=== PATIENT | female | born 1955 | race Caucasian/White ===

== ENCOUNTER 2023-02-28 23:09 | Inpatient (IN) | payer MEDICARE, SELFPAY ==
--- NOTE | ~2023-02-28 | CT_ITS ---
Clinical Indication: Dyspnea CT Scan of the Chest with Contrast: Technique: Contiguous sections were acquired throughout the chest after intravenous administration of 100 cc of Omnipaque 350. Dose reduction technique was used on this scan by utilizing automated expos ure control and iterative reconstruction technique. The dose-length product (DLP) was 870.53 mGy-cm. Findings: There is no evidence of any significant mediastinal, hilar or axillary lymphadenopathy. There is no f illing defect in the pulmonary arterial tree to suggest pulmonary embolus. There is an aortic dissect ion, originating at the aortic arch of probably just distal to the right brachiocephalic artery origi n, extending distally throughout the descending thoracic aorta and the visualized abdominal aorta. Ce liac axis, SMA, and right renal artery arise from the true lumen. Origin of the left renal artery is not included in the [id number] of this exam. Coronary artery calcifications are present. There are postsurgical changes in the right breast. Small hiatal hernia noted. There is no evidence of pleural or pericardial effusion. Mild emphysema present. There is bibasilar interstitial thickening. There is probable chronic scarrin g or atelectasis in the right middle lobe. Images through the upper abdomen reveal no abnormalities. There are scattered sclerotic and mixed lytic sclerotic osseous lesions in the visualized skeleton, c onsistent with osseous metastatic disease. Impression: Aortic dissection, originating at the aortic arch, and extending through the descending thoracic aort a and visualized abdominal aorta, as detailed above. No pulmonary embolus. Probable mild bibasilar interstitial pulmonary edema versus mild chronic interstitial disease. Chronic scarring or atelectasis right middle lobe. Osseous metastatic disease, as noted above. Correlate with history of malignancy. Mild emphysema. Reviewed, dictated and finalized at [facility]. Impression: Aortic dissection, originating at the aortic arch, and extending through the de scending thoracic aorta and visualized abdominal aorta, as detailed above. No pulmonary embolus. Probable mild bibasilar interstitial pulmonary edema versus mild chronic inters titial disease. Chronic scarring or atelectasis right middle lobe. Osseous metastatic disease, as noted above. Correlate with history of malignanc y. Mild emphysema.
--- NOTE | ~2023-02-28 | XR_ITS ---
EXAMINATION: XR chest 1V portable DATE: 03/03/2023 23:07 INDICATION: Shortness of breath. TECHNIQUE: A single frontal view of the chest was obtained. COMPARISON: Chest single view 03/02/2023, chest CT 03/01/2023 FINDINGS: There is a diffuse interstitial pattern in the lungs. There are airspace opacities in the l ower lung zones. There is a small right pleural effusion. No pneumothorax. The heart size is normal. Median sternotomy wires are noted. There are surgical clips in right breast in right axilla. A right internal jugular central venous catheter is seen with tip in the proximal right atrium. There is a ly tic lesion in right fifth rib with old pathologic fracture. There is an old healed left rib fracture. IMPRESSION: 1. Mildly worsened diffuse lung disease, consistent with pulmonary edema versus pneumonia. 2. Worsened small right pleural effusion. 3. Lytic rib lesion, consistent with metastatic disease. Reviewed, dictated and finalized at location A.
--- NOTE | ~2023-02-28 | XR_ITS ---
Portable chest x-ray Comparison: 02/28/2023 Clinical History: Line placement Findings: Right-sided central venous line is in place, tip probably just in the right atrium. There is probable mild bibasilar haziness. No pleural effusion or pneumothorax. Cardiomediastinal silhouet te is stable. Bones and soft tissues are unremarkable. Impression: Support line in place, as above. Probable minimal bibasilar pulmonary edema. Reviewed, dictated and finalized at location . Impression: Support line in place, as above. Probable minimal bibasilar pulmonary edema.
--- NOTE | ~2023-02-28 | XR_ITS ---
Portable chest x-ray Comparison: 09/07/2007 Clinical History: Dyspnea Findings: There is bibasilar pulmonary edema. No definite pleural effusion. Cardiomediastinal silho uette is stable. Bones and soft tissues are unremarkable. Impression: Mild bibasilar pulmonary edema. Correlate clinically for infection. Reviewed, dictated and finalized at [facility]. Impression: Mild bibasilar pulmonary edema. Correlate clinically for infection.
--- NOTE | ~2023-02-28 | XR_ITS ---
EXAMINATION: XR chest 1V portable DATE: 03/02/2023 08:03 INDICATION: Shortness of breath. TECHNIQUE: A single frontal view of the chest was obtained. COMPARISON: Chest single view 03/01/2023, chest CT 03/01/2023 FINDINGS: There are airspace opacities in the lower lung zones. There is an interstitial pattern in t he lungs with a perihilar predominance. No pleural effusion or pneumothorax. The heart size is normal . Median sternotomy wires are noted. A right internal jugular central venous catheter is seen with ti p in the proximal right atrium. There are surgical clips in right axilla. IMPRESSION: 1. Diffuse lung disease with a perihilar and lower lung predominance, likely mild pulmonary edema. Reviewed, dictated and finalized at location A. IMPRESSION: 1. Diffuse lung disease with a perihilar and lower lung predominance, likely mi ld pulmonary edema.
[2023-02-28 23:09] VITALS: BP 176/90; PULSE 120; RESP 26; TEMP 37.7; O2SAT 88
[2023-02-28 23:15] VITALS: O2SAT 98
--- NOTE | 2023-02-28 23:27 | ECG_ITS ---
Measurements Intervals [place] Rate: 124 P: 48 ID: [id number] QRS: -29 QRSD: 102 T: 12 QT: 331 QTc: 476 Interpretive Statements SINUS TACHYCARDIA LEFT VENTRICULAR HYPERTROPHY AND ST-T CHANGE POOR R WAVE PROGRESSION, ANTERIOR LEADS BASELINE ARTIFACT- I, II, III ABNORMAL ECG NO PREVIOUS ECG AVAILABLE FOR COMPARISON Electronically Signed On 03-01-2023 6:25:21 CDT by Dung Roblero D.O.
[2023-02-28 23:58] LABS: Fractional Inspired Oxygen 36 %; HCO3 ABG 22.7 mEq/l (22.0-26.0); Oxygen Content ABG 14.2 %vol (16.0-22.0); Oxygen Saturation ABG 96.3 % (95.0-100.0); PCO2 ABG 30.6 mmHg (35.0-45.0); PO2 ABG 76.2 mmHg (80.0-100.0); PO2 FiO2 Ratio Arterial Blood 2.12 %; Total Hemoglobin 10.8 g/dL (12.0-18.0); pH ABG 7.489 (7.350-7.450)
[2023-02-28 23:59] LABS: Device NASAL CANNULA; Site Drawn LEFT BRACHIAL
[2023-03-01] VITALS (72 sets, daily range): BP systolic 83–169; BP diastolic 45–90; PULSE 90–131; RESP 14–43; TEMP 37.2; O2SAT 85–100; BMI 37.8
[2023-03-01] LABS: Glucose Point of Care 136 mg/dl (65-105)
[2023-03-01 00:03] LABS: Hematocrit 31.2 % (37.0-47.0); Hemoglobin 10.5 g/dL (12.0-15.0); Mean Corpuscular HGB Conc 33.7 g/dl (32-36); Mean Corpuscular Hemoglobin 31.1 pg (26-34); Mean Corpuscular Volume 92.3 fl (80-100); Mean Platelet Volume 9.1 fl (7.4-10.4); Platelet Count Result 190 k/mm3 (150-375); Red Blood Count 3.38 M/mm3 (4.2-5.4); Red Cell Distribution Width 22.5 % (11.5-14.5)
--- NOTE | 2023-03-01 00:13 | ED.GENADULT ---
HPI - General Adult General Chief complaint: Shortness of Breath/Dyspnea Stated complaint: sob History of Present Illness HPI narrative: This 59-year-old female presenting ED with a chief complaint of shortness of breath, cough, nausea,vomiting,weakness. Patient has been getting chemotherapy for her stage IV breast cancer. She has been feeling unwell for the last several weeks. However today she get acutely worse. After she had dinner she started coughing and became short of breath. Her son was with her called EMS and she was found to be hypoxic on room air. She was placed on 4 L nasal cannula which improved her oxygen saturation. She is then brought to the hospital. Patient receives her oncology care at [facility] Related Data Allergies Allergy/AdvReac Type Severity Reaction Status Date / Time vancomycin Allergy Hives Verified 03/01/23 00:19 warfarin Allergy Hives Verified 03/01/23 00:19 [facility] Family History Family History Mother Acute arthritis Diabetes mellitus Heart disease Hypertension Father Hypertension Cerebrovascular accident Sibling Hypertension Social History Social History Smoking status: Unknown if ever smoked Exam Narrative: APPEARANCE: patient appears chronically unwell, she is breathing heavily Head: atraumatic. EYES: EOMI, NOSE: Atraumatic NECK: Trachea midline RESPIRATORY: increased rate of breathing, scattered crackles CARDIOVASCULAR: RRR, no peripheral edema ABDOMINAL: Non-distended, soft nontender no guarding or rebound MUSCULOSKELETAl: No obvious deformities NEURO: Alert. Moving 4/4 extremities SKIN:: Warm, dry. Normal color PSYCHIATRIC: Normal affect Course Vital Signs Vital signs: Vital Signs Temperature 100 F H 02/28/23 23:09 Pulse Rate 120 H 02/28/23 23:09 Respiratory Rate 26 H 02/28/23 23:09 Blood Pressure 176/90 H 02/28/23 23:09 Pulse Oximetry 88 L 02/28/23 23:09 Oxygen Delivery Room Air 02/28/23 23:09 Temperature 100 F H 02/28/23 23:09 Pulse Rate 110 H 03/01/23 04:31 Respiratory Rate 19 03/01/23 04:31 Blood Pressure 99/51 L 03/01/23 04:31 Pulse Oximetry 93 03/01/23 04:31 Oxygen Delivery BiPAP 03/01/23 02:30 Oxygen Flow Rate 4 02/28/23 23:15 Procedures Central Line Placement Right IJ: Central Line Date: 03/01/23 Discussed w/ the patient/family/POA,the placement of a central venous catheter, including its clinical necessity/indication & associated potential risks, benifits and alternatives.: Yes The patient/family/POA understand(s) and acknowledge(s) the need to proceed with central venous catheter insertion as an important element of the patient's clinical management.: Yes Time Out Performed: Yes Patient Placed on Monitor/Pulse Ox: Yes Max. Sterile Barrier Technique: Caps, large sterile sheet and hand hygiene Central Line Prep: 2% chlorhexidine scrub Technique: US-Guided Local Anesthetic: lidocaine 1% Amount of anesthesia used (mL): 3 Ultrasound Used for Placement: Yes Central Line Lumen Inserted: triple Post Procedure: sutured in place, good blood return, all ports aspirated, flushed, capped and sterile dressing applied Post Procedure X-Ray: tip of catheter in good position Patient Tolerated Procedure: well Complications: none EJ/Peripheral Line Arm L: EJ/Peripheral Line Date: 03/01/23 Time Out Performed: No Skin Cleansed in Sterile Fashion: Yes Ultrasound Guided: No Size (gauge): 18 IV Secured and Dressing Applied: Yes Patient Tolerated Procedure: well Additional Comments: IV placed by MD under emergent conditions. Medical Decision Making MDM Narrative Medical decision making narrative: -Presentation: is a 67-year-old female with history of stag
[2023-03-01 00:15] LABS: White Blood Count 1.9 K/mm3 (4.5-10.0)
[2023-03-01] MEDS: CEFEPIME 2 GM/NS 50 ML 2 GM/50 ML BAG IVPB (00:21)
[2023-03-01 00:23] LABS: Prothrombin Time 13.3 Seconds (11.1-14.7)
[2023-03-01 00:24] LABS: Partial Thromboplastin Time 27.5 SECONDS (22.3-36.8)
[2023-03-01 00:25] LABS: Alanine Aminotransferase 17 U/L (6-35); Albumin Level 4.3 g/dL (3.5-5.1); Alkaline Phosphatase 65 U/L (38-126); Anion Gap 7 mmol/L (8-16); Aspartate Amino Transferase 21 U/L (14-36); Bilirubin,Total 1.1 mg/dL (0.2-1.3); Blood Urea Nitrogen 20 mg/dL (7-17); Calcium 9.3 mg/dL (8.4-10.2); Carbon Dioxide 30 mmol/L (22-30); Chloride 97 mmol/L (98-107); Estimated CRCL calculation 42 ml/min; Estimated Glomerular Filt Rate 41; Glucose 129 mg/dL (65-110); Lactic Acid Reflex 1.5 mmol/L (0.7-2.0); Lipase 74 U/L (23-300); Magnesium 1.2 mg/dL (1.6-2.3); Potassium 3.3 mmol/L (3.4-5.0); Sodium 134 mmol/L (137-145)
[2023-03-01 00:28] LABS: Appearance Urine Clear (Clear); Bacteria Urine 2+ /hpf; Bilirubin Urine Negative (Negative); Color Urine Dark Yellow (Yellow); Glucose Urine UA Trace mg/dL (Negative); Ketones Urine Negative (Negative); Leukocyte Esterase Ur 2+ LEU/UL (Negative); Nitrate Urine Positive (Negative); Non Pathogenic Casts 0-2; Protein Urine 2+ mg/dL (Negative); RBC Urine 0-2 /hpf (0-2); Specific Grav Ur 1.012 (1.001-1.035); Squamous Epithelial Cell Urine Moderate /hpf (Few); WBC Urine 51-100 /hpf
[2023-03-01 00:34] LABS: NT Pro B Type Natriuretic Pept 2530 pg/mL (19.9-100)
[2023-03-01 00:36] LABS: Troponin I 0.012 ng/mL (0.000-0.034)
[2023-03-01 00:38] LABS: Influenza A QL RT-PCR Negative (Negative); Influenza B QL RT-PCR Negative (Negative); RSV RNA, RT-PCR Negative (Negative); SARS-CoV-2 RNA PCR Negative (Negative)
[2023-03-01 00:40] LABS: Add Urine Microscopic? YES
[2023-03-01 00:53] LABS: Anisocytosis 2+ (NORMAL); Band Neutrophils Percent 38 % (0-6); Eosinophils Absolute Manual 0.03 K/mm3 (0.02-0.5); Eosinophils Percent Manual 2 % (0-4); Lymphocytes Absolute Manual 0.19 K/mm3 (1.1-4.5); Metamyelocytes Percent 1 %; Microcytosis 2+ (NORMAL); Monocytes Absolute Manual 0.07 K/mm3 (0.1-0.90); Monocytes Percent Manual 4 % (3-9); Neutrophils Absolute Manual 1.53 K/mm3 (1.7-7.2); Neutrophils Percent Manual 43 % (46-73); Platelet Estimate Adequate (Adequate); Promyelocytes Percent 2 %; Total Cells Counted 100
[2023-03-01 00:55] LABS: Ovalocytes 1+ (NORMAL); Poikilocytosis 2+ (NORMAL); Schistocytes None Seen (NORMAL)
[2023-03-01 00:56] LABS: Burr Cells 1+ (NORMAL)
--- NOTE | 2023-03-01 01:12 | PC.NURSE ---
per EDP-Zych normal saline administration stopped
[2023-03-01] MEDS: LINEZOLID 600 MG/300 ML 600 MG/300 ML SOLN 300 MG IVPB ×3 (01:50→20:31)
[2023-03-01] MEDS: HYDROmorphone HCL INJ (*CRX) 1 MG/ML SYR 0.5 MG IV PUSH (02:14)
[2023-03-01] MEDS: POTASSIUM CHLORIDE 20 MEQ TABLET 40 MEQ PO (02:18)
[2023-03-01] MEDS: MAGNESIUM SULF 2 GM/WATER 50ML 2 GM/50 ML BAG IVPB (02:25)
[2023-03-01] MEDS: IPRATROPIUM BR 0.02% INH SOLN 0.5 MG/2.5 ML VIAL 1 MG INHALATION (02:37)
[2023-03-01] MEDS: ALBUTEROL SULFATE NEB 2.5 MG/3 ML INH 10 MG INHALATION (02:37)
[2023-03-01] MEDS: ONDANSETRON INJ 4 MG/2 ML VIAL IV PUSH (02:46)
--- NOTE | 2023-03-01 02:56 | PC.NURSE ---
patient placed on bipap by respiratory. Patient vomits in mask. Mask removed quickly and patient continues to vomit. EDP notified.
[2023-03-01] MEDS: SODIUM CHLORIDE 0.9% IV 1,000 ML 999 ML IV CONT (03:53)
[2023-03-01] MEDS: SODIUM CHLORIDE 0.9% IV 1,000 ML 100 ML IV CONT ×2 (04:37→16:13)
[2023-03-01] MEDS: NOREPINEPHRINE 8 MG/D5W 250 ML 8 MG/250 ML BAG 9.38 MG IV CONT (05:09)
--- NOTE | 2023-03-01 06:40 | PC.NURSE ---
Patient's son calls for an update and requests to be informed of mothers admission room when that occurs. Call back-[phone] Lincoln Ochoa.
--- NOTE | 2023-03-01 07:45 | PC.NURSE ---
called dietary and ordered breakfast tray for pt at this time
--- NOTE | 2023-03-01 08:05 | PM.IMHP ---
H&P: HPI History of Present Illness Date/Time: 03/01/23 08:05 Chief Complaint: 59-year-old female with history of recent aortic dissection status post repair, diabetes, breast cancer, heart disease, ischemic cardiomyopathy is presenting to the ER with shortness of breath, cough, nausea, vomiting and weakness. She had aortic dissection and aortic valve repair in October 2022 and is currently receiving chemotherapy for stage IV breast cancer at [facility]. In the ER, she was found to be hypoxic and placed on 4 L nasal cannula. Labs showed hypokalemia and suspected dehydration. She was started on IV fluids. CTA was negative for PE. EKG was benign for sinus tach. There was concern for pneumonia, UTI and possible sepsis and so she was started on broad-spectrum antibiotics. She had a central line placed due to severe hypotension and was also put on BiPAP due to worsening respiratory failure. She eventually required pressors and was admitted to the ICU. The ED physician discussed with [facility] cardiothoracic surgery regarding the aortic dissection, Dr Montalvo stated that the aortic dissection is stable and noncontributory to the admitting symptoms.? The ER physician also called [facility] transfer service and patient is on a waiting list. Review of Systems Review of Systems: 12 point review of systems was assessed and was negative except as noted in the HPI PMFSH Past Medical History Medical History (Updated 03/01/23 @ 13:20 by Toño Ortega MD) Aortic valve defect Diabetes mellitus with hyperglycemia HTN (hypertension), benign Hyperlipidemia Stage IV breast cancer in female Surgical History Surgical History (Updated 03/01/23 @ 08:12 by Nia Barnett DO) S/P aortic dissection repair Family History Family History Mother Acute arthritis Diabetes mellitus Heart disease Hypertension Father Hypertension Cerebrovascular accident Sibling Hypertension Social History Social History Smoking packs per day: 1 Smoking cigarettes per day: 20.0 Years smoked: 30 Smoking pack-years: 30.00 Smoking status: Former smoker Alcohol intake: never Substance use: never Lack of Transportation: No Lack of Food: Never True Current Housing: I Have Housing Concerned About Future Housing: No Difficulty Paying Gas/Electric Bills: No Difficulty Paying for Meds: No Currently Unemployed: No Education: Associate Degree Difficulty w/ Childcare or Family Care: No Spiritual care concerns: No Meds Home Medications and Allergies Home Medications Medication Instructions Recorded Confirmed Type Oxygen #1 ea 11/03/22 03/01/23 Rx Palbociclib(Ibrance) 125 mg PO DAILY ##0 11/03/22 03/01/23 Rx Zoledronic Acid 4 mg IV [id number] ##0 11/03/22 03/01/23 Rx acetaminophen 325 mg tablet (Mapap 650 mg PO Q6H PRN Pain #14 tabs 11/03/22 03/01/23 Rx (acetaminophen)) ascorbic acid (vitamin C) 500 mg 250 mg PO DAILY #14 tabs 11/03/22 03/01/23 Rx tablet (Vitamin C) aspirin 81 mg chewable tablet 81 mg PO DAILY@0800 #30 tabs 11/03/22 03/01/23 Rx (Children's Aspirin) atorvastatin 40 mg tablet 40 mg PO DAILY #30 tabs 11/03/22 03/01/23 Rx calcium carbonate 500 mg calcium 500 mg PO BIDWM #30 tabs 11/03/22 03/01/23 Rx (1,250 mg) tablet (Oyster Shell Calcium 500) carvedilol 12.5 mg tablet (Coreg) 12.5 mg PO Q12HR #60 tabs 11/03/22 03/01/23 Rx cholecalciferol (vitamin D3) 25 2,000 units PO DAILY #30 tabs 11/03/22 03/01/23 Rx mcg (1,000 unit) tablet (Vitamin D3) escitalopram oxalate 10 mg tablet 20 mg PO DAILY #0 tabs 11/03/22 03/01/23 Rx furosemide 20 mg tablet 20 mg PO DAILY #14 tabs 11/03/22 03/01/23 Rx metformin 500 mg tablet 500 mg PO BIDWMEAL #30 tabs 11/03/22 03/01/23 Rx potassium chloride 10 mEq 10 meq PO DAILY #12 caps 11/03/22 03/01/23 Rx capsule,extende
[2023-03-01 08:57] LABS: Troponin I 0.035 ng/mL (0.000-0.034)
[2023-03-01] MEDS: HEPARIN SODIUM 5,000 UNITS/ML VIAL 5000 UNITS SUB-Q ×2 (09:09→20:32)
[2023-03-01] MEDS: CEFEPIME 1 GM in DEXTROSE 5% IN WATER 50 ML IVPB (10:08)
--- NOTE | 2023-03-01 10:45 | ADMGEN ---
This patient, Ana Ochoa, was admitted to Intensive Care Unit-12. Patient/family oriented to hospital policies and general routines including ID bracelet, bed and alarms, visiting hours, pain management, procedures, bathroom and other care routines, personal items, smoking policy, room service/diet, and visiting hours. Information on how to activate the Rapid Response Team has been discussed. Patient/Family are encouraged to report perceived risks to care and to ask questions if they do not understand what they are told or what they should do.
[2023-03-01 12:29] LABS: Troponin I 0.019 ng/mL (0.000-0.034)
--- NOTE | 2023-03-01 12:55 | WPDCNINT ---
Assessment and Plan Assessment and plan (1) Septic shock: Code(s): A41.9 - Sepsis, unspecified organism; R65.21 - Severe sepsis with septic shock Status: Acute Assessment and Plan: Patient presented with nausea, vomiting, shortness of breath with nonproductive cough. Hypotension despite receiving 4 L of IV fluid bolus in the ER, right IJ was inserted in the ER and patient was started on Levophed -likely source urine and or pneumonia -received chemotherapy recently on 02/20/2023 -patient has been started on cefepime, azithromycin and linezolid (patient allergic to vancomycin) on 03/01 -03/01/blood and urine cultures have been obtained and pending -lactic acid was normal -will wean Levophed to maintain MAP > 65 mmHg for adequate end organ perfusion (2) Acute UTI: Code(s): N39.0 - Urinary tract infection, site not specified Status: Acute Assessment and Plan: UA was reflective for UTI, urine cultures have been obtained, continue antibiotics as above (3) Diabetes mellitus with hyperglycemia: Qualifiers: Diabetes mellitus type: type 2 Code(s): E11.65 - Type 2 diabetes mellitus with hyperglycemia Status: Acute Assessment and Plan: Continue Accu-Cheks and sliding scale (4) CKD (chronic kidney disease): Qualifiers: Chronic kidney disease stage: unspecified stage Qualified Code(s): N18.9 - Chronic kidney disease, unspecified Code(s): N18.9 - Chronic kidney disease, unspecified Status: Acute Assessment and Plan: Patient history of chronic kidney disease -acute renal failure with creatinine of 1.3 on admission (creatinine on 10/28/2022 was 0.9) -related to hypotension, hypovolemia, urosepsis -continue maintenance IV fluids -good urine output, renal function and electrolyte (5) Respiratory failure: Qualifiers: Chronicity: acute Respiratory failure complication: hypoxia Qualified Code(s): J96.01 - Acute respiratory failure with hypoxia Code(s): J96.90 - Respiratory failure, unspecified, unspecified whether with hypoxia or hypercapnia Status: Acute Assessment and Plan: Patient complained of worsening shortness of breath with cough, related to pneumonia versus pulmonary edema -much improved when she arrived in the ICU as compared to when she presented to the ER -continue supplemental oxygen - (6) Aortic dissection: Qualifiers: Thoracic aorta location: descending thoracic aorta Aortic location: thoracic aorta Qualified Code(s): I71.012 - Dissection of descending thoracic aorta Code(s): I71.00 - Dissection of unspecified site of aorta Status: Acute Assessment and Plan: 03/01/2023 CTA showed : Aortic dissection, originating at the aortic arch, and extending through the descending thoracic aorta and visualized abdominal aorta, as detailed above. No pulmonary embolus. Probable mild bibasilar interstitial pulmonary edema versus mild chronic interstitial disease. Chronic scarring or atelectasis right middle lobe. Osseous metastatic disease, as noted above. Correlate with history of malignancy. Mild emphysema. The ER doctor discussed with CT surgery at [facility], Dr. Montalvo stated that the aortic dissection is stable and noncontributory to the admitting symptoms. No need to transfer the patient to [facility] (7) Stage IV breast cancer in female: Code(s): C50.919 - Malignant neoplasm of unspecified site of unspecified female breast Status: Acute Assessment and Plan: Stage IV breast cancer, patient received the chemotherapy at [facility] - The ER physician also called [facility] transfer service and patient is on a waiting list. -last chemotherapy on 02/20/2023 Plan DVT prophylaxis: Lovenox Stress ulcer prophylaxis: Not indicated Nutrition: Heart healthy diet Code Status: Do not resuscitate Critical Care Time Spent: 49 m
[2023-03-01] MEDS: LEVALBUTEROL NEB 1.25 MG/3 ML INHALATION ×2 (15:40→20:12)
[2023-03-01] MEDS: IPRATROPIUM BR 0.02% INH SOLN 0.5 MG/2.5 ML VIAL INHALATION ×2 (15:40→20:12)
[2023-03-01] MEDS: CENTRAL LINE FLUSH 10 ML IV PUSH ×2 (15:59→21:37)
[2023-03-01 16:38] LABS: Glucose Point of Care 113 mg/dl (65-105)
[2023-03-01] MEDS: CEFEPIME 2 GM in DEXTROSE 5% IN WATER 50 ML IVPB (20:42)
[2023-03-01 20:48] LABS: Glucose Point of Care 210 mg/dl (65-105)
[2023-03-01] MEDS: traMADol HCL (*CRX) 50 MG TABLET PO (21:36)
[2023-03-02] VITALS (20 sets, daily range): BP systolic 85–142; BP diastolic 55–97; PULSE 92–99; RESP 12–23; TEMP 36.7–37.2; O2SAT 93–100
[2023-03-02] MEDS: LEVALBUTEROL NEB 1.25 MG/3 ML INHALATION ×4 (01:55→20:48)
[2023-03-02] MEDS: IPRATROPIUM BR 0.02% INH SOLN 0.5 MG/2.5 ML VIAL INHALATION ×4 (01:55→20:48)
[2023-03-02] MEDS: SODIUM CHLORIDE 0.9% IV 1,000 ML 100 ML IV CONT (03:25)
[2023-03-02 05:45] LABS: Basophils Percent Auto 0.5 % (0.2-1.2); Eosinophils Absolute Auto 0.1 K/mm3 (0-0.3); Eosinophils Percent Auto 1.6 % (0-4.4); Hematocrit 24.4 % (37.0-47.0); Hemoglobin 7.9 g/dL (12.0-15.0); Immature Granulocyte Percent A 4.7 % (0-0.5); Lymphocytes Absolute Auto 0.69 K/mm3 (0.9-3.2); Lymphocytes Percent Auto 16.1 % (18.3-44.2); Mean Corpuscular HGB Conc 32.4 g/dl (32-36); Mean Corpuscular Hemoglobin 31.1 pg (26-34); Mean Corpuscular Volume 96.1 fl (80-100); Mean Platelet Volume 9.3 fl (7.4-10.4); Monocytes Absolute Auto 0.4 K/mm3 (0.1-0.6); Monocytes Percent Auto 9.8 % (2.6-8.5); Neutrophils Absolute Auto 2.9 K/mm3 (1.3-6.7); Neutrophils Percent Auto 67.3 % (45.5-73.1); Platelet Count Result 128 k/mm3 (150-375); Red Blood Count 2.54 M/mm3 (4.2-5.4); Red Cell Distribution Width 22.9 % (11.5-14.5); White Blood Count 4.3 K/mm3 (4.5-10.0)
[2023-03-02 05:55] LABS: Alanine Aminotransferase 13 U/L (6-35); Alkaline Phosphatase 46 U/L (38-126); Anion Gap 3 mmol/L (8-16); Aspartate Amino Transferase 14 U/L (14-36); Bilirubin,Total 0.6 mg/dL (0.2-1.3); Blood Urea Nitrogen 18 mg/dL (7-17); Calcium 7.4 mg/dL (8.4-10.2); Carbon Dioxide 28 mmol/L (22-30); Chloride 104 mmol/L (98-107); Estimated CRCL calculation 46 ml/min; Estimated Glomerular Filt Rate 45; Glucose 87 mg/dL (65-110); Magnesium 1.7 mg/dL (1.6-2.3); Potassium 3.4 mmol/L (3.4-5.0); Sodium 135 mmol/L (137-145)
[2023-03-02 05:57] LABS: Lactic Acid Reflex 0.6 mmol/L (0.7-2.0)
[2023-03-02 06:24] LABS: Anisocytosis 3+ (NORMAL); Burr Cells 2+ (NORMAL); Ovalocytes 1+ (NORMAL); Schistocytes None Seen (NORMAL)
[2023-03-02] MEDS: CENTRAL LINE FLUSH 10 ML IV PUSH ×3 (06:30→20:31)
[2023-03-02] MEDS: FUROSEMIDE INJ 40 MG/4 ML VIAL 20 MG IV PUSH (07:33)
[2023-03-02 07:40] LABS: Glucose Point of Care 88 mg/dl (65-105)
[2023-03-02] MEDS: traMADol HCL (*CRX) 50 MG TABLET PO ×2 (07:41→18:04)
[2023-03-02] MEDS: POTASSIUM CHLORIDE 20 MEQ TABLET 40 MEQ PO (08:16)
[2023-03-02] MEDS: LINEZOLID 600 MG/300 ML 600 MG/300 ML SOLN 300 MG IVPB (08:18)
[2023-03-02] MEDS: MAGNESIUM SULF 2 GM/WATER 50ML 2 GM/50 ML BAG IVPB (08:18)
[2023-03-02] MEDS: CEFEPIME 2 GM in DEXTROSE 5% IN WATER 50 ML IVPB (08:25)
[2023-03-02] MEDS: ENOXAPARIN 30 MG/0.3 ML SYRINGE SUB-Q (08:35)
[2023-03-02 11:32] LABS: Glucose Point of Care 141 mg/dl (65-105)
--- NOTE | 2023-03-02 12:08 | WPDINTPN ---
Progress Note: A&P Assessment and Plan (1) Septic shock: Code(s): A41.9 - Sepsis, unspecified organism; R65.21 - Severe sepsis with septic shock Status: Acute Assessment and Plan: Patient presented with nausea, vomiting, shortness of breath with nonproductive cough. Hypotension despite receiving 4 L of IV fluid bolus in the ER, right IJ was inserted in the ER and patient was started on Levophed -likely source urine and or pneumonia -received chemotherapy recently on 02/20/2023 -patient has been started on cefepime, azithromycin (03/01), -linezolid discontinued 03/02/2023 -03/01 blood cultures growing Gram-negative bacilli -03/01: Urine cultures pending -lactic acid was normal -currently off Levophed (2) Acute UTI: Code(s): N39.0 - Urinary tract infection, site not specified Status: Acute Assessment and Plan: UA was reflective for UTI, urine cultures have been obtained, continue antibiotics as above (3) Diabetes mellitus with hyperglycemia: Qualifiers: Diabetes mellitus type: type 2 Code(s): E11.65 - Type 2 diabetes mellitus with hyperglycemia Status: Acute Assessment and Plan: Continue Accu-Cheks and sliding scale (4) CKD (chronic kidney disease): Qualifiers: Chronic kidney disease stage: unspecified stage Qualified Code(s): N18.9 - Chronic kidney disease, unspecified Code(s): N18.9 - Chronic kidney disease, unspecified Status: Acute Assessment and Plan: Patient history of chronic kidney disease -acute renal failure with creatinine of 1.3 on admission (creatinine on 10/28/2022 was 0.9) -related to hypotension, hypovolemia, urosepsis -continue maintenance IV fluids -good urine output, renal function and electrolyte -creatinine improving (5) Respiratory failure: Qualifiers: Chronicity: acute Respiratory failure complication: hypoxia Qualified Code(s): J96.01 - Acute respiratory failure with hypoxia Code(s): J96.90 - Respiratory failure, unspecified, unspecified whether with hypoxia or hypercapnia Status: Acute Assessment and Plan: Patient complained of worsening shortness of breath with cough, related to pneumonia versus pulmonary edema -much improved when she arrived in the ICU as compared to when she presented to the ER -continue supplemental oxygen -patient given low-dose Lasix this morning as she was congested, chest x-ray also showed pulmonary edema (6) Aortic dissection: Qualifiers: Aortic location: thoracic aorta Thoracic aorta location: descending thoracic aorta Qualified Code(s): I71.012 - Dissection of descending thoracic aorta Code(s): I71.00 - Dissection of unspecified site of aorta Status: Acute Assessment and Plan: 03/01/2023 CTA showed : Aortic dissection, originating at the aortic arch, and extending through the descending thoracic aorta and visualized abdominal aorta, as detailed above. No pulmonary embolus. Probable mild bibasilar interstitial pulmonary edema versus mild chronic interstitial disease. Chronic scarring or atelectasis right middle lobe. Osseous metastatic disease, as noted above. Correlate with history of malignancy. Mild emphysema. The ER doctor discussed with CT surgery at [facility], Dr. Montalvo stated that the aortic dissection is stable and noncontributory to the admitting symptoms. No need to transfer the patient to [facility] (7) Stage IV breast cancer in female: Code(s): C50.919 - Malignant neoplasm of unspecified site of unspecified female breast Status: Acute Assessment and Plan: Stage IV breast cancer, patient received the chemotherapy at [facility] - The ER physician also called [facility] transfer service and patient is on a waiting list. -last chemotherapy on 02/20/2023 Plan DVT prophylaxis: Lovenox Stress ulcer prophylaxis: Not indicated Nutrition: Hear
--- NOTE | 2023-03-02 13:05 | PM.IMPN ---
Progress Note: A&P Assessment and Plan (1) Septic shock: Code(s): A41.9 - Sepsis, unspecified organism; R65.21 - Severe sepsis with septic shock Status: Acute Assessment and Plan: Management per staple fiber washer, continue Levophed and normal saline infusions Weaned off pressors and continue antibiotics, started on linezolid, cefepime, azithromycin 03/01 Both blood and urine cultures all positive for E coli, sensitivities pending Will repeat blood cultures 03/03 03/02: deescalate antibiotics, MRSA swab pending, discontinue azithromycin, deescalate cefepime to Rocephin and continue linezolid for now (2) Stage IV breast cancer in female: Code(s): C50.919 - Malignant neoplasm of unspecified site of unspecified female breast Status: Acute Assessment and Plan: Hold chemotherapy for now, last dose 02/20/23 (3) Diabetes mellitus with hyperglycemia: Qualifiers: Diabetes mellitus type: type 2 Code(s): E11.65 - Type 2 diabetes mellitus with hyperglycemia Status: Acute Assessment and Plan: Check A1c, Accu-Cheks, sliding scale insulin Hold metformin (4) Hyperlipidemia: Code(s): E78.5 - Hyperlipidemia, unspecified Status: Acute Assessment and Plan: Hold statin (5) HTN (hypertension), benign: Code(s): I10 - Essential (primary) hypertension Status: Acute Assessment and Plan: Hold antihypertensives Pressors per staple fiber washer (6) Aortic valve defect: Code(s): I35.9 - Nonrheumatic aortic valve disorder, unspecified Status: Acute Assessment and Plan: Stable status post repair October 2022 (7) S/P aortic dissection repair: Code(s): Z98.890 - Other specified postprocedural states Status: Acute Assessment and Plan: Stable status post repair October 2022 Plan DVT prophylaxis with SCDs GI prophylaxis not indicated Code status DNR/DNI Subjective Date/time seen: 03/02/23 13:05 Interval history: 67-year-old female history of breast cancer, diabetes, aortic dissection repair presenting with shortness of breath, cough, nausea, vomiting and generalized weakness presented with hypoxia and sepsis from a UTI. No overnight events noted. No chest pain or shortness of breath. No nausea, vomiting or diarrhea. No fevers or chills. Review of Systems Review of Systems: 12 point review of systems was assessed and was negative except as noted in the HPI Exam Narrative: General: No acute distress, alert and oriented per baseline, still requiring supplemental oxygen at times HEENT: Atraumatic, normocephalic, mucous membranes moist CV: Regular rate and rhythm, S1, S2 Lungs: Coarse BS throughout, diminished air entry, no wheeze Abdomen: Soft, nontender, nondistended Extremities: Normal to inspection, nonpitting edema bilaterally Skin: No rashes noted, no lesions or wounds seen Psych: Euthymic, normal affect Objective Data Vital Signs Vital Signs: Vital Signs - 24 hr 03/01/23 13:17 03/01/23 14:00 03/01/23 14:00 Temperature Pulse Rate 93 90 90 Respiratory Rate 16 Blood Pressure 115/77 109/67 Pulse Oximetry 95 Oxygen Delivery Oxygen Flow Rate 03/01/23 14:00 03/01/23 14:00 03/01/23 15:41 Temperature Pulse Rate 90 Respiratory Rate 14 Blood Pressure 109/57 L Pulse Oximetry 97 96 Oxygen Delivery Nasal Cannula Nasal Cannula Oxygen Flow Rate 2 1 03/01/23 15:41 03/01/23 16:00 03/01/23 16:00 Temperature Pulse Rate 90 101 H Respiratory Rate 16 Blood Pressure Pulse Oximetry 94 Oxygen Delivery Room Air Oxygen Flow Rate 03/01/23 16:00 03/01/23 18:00 03/01/23 18:00 Temperature 99.0 F Pulse Rate 96 93 93 Respiratory Rate 18 18 Blood Pressure 113/67 109/79 Pulse Oximetry 95 85 L Oxygen Delivery Oxygen Flow Rate 03/01/23 18:00 03/01/23 18:19 03/01/23 20:14 Temperatu
[2023-03-02] MEDS: ALBUMIN HUMAN 25% 25 GM/100 ML 100 ML IVPB (18:05)
[2023-03-02] MEDS: cefTRIAXone 2 GM/NS 100 ML 2 GM/100 ML BAG IVPB (20:29)
[2023-03-02 20:57] LABS: Glucose Point of Care 119 mg/dl (65-105)
[2023-03-03] VITALS (28 sets, daily range): BP systolic 112–160; BP diastolic 62–90; PULSE 95–113; RESP 16–22; TEMP 36.5–37.3; O2SAT 86–97
[2023-03-03] MEDS: ALBUMIN HUMAN 25% 25 GM/100 ML 100 ML IVPB ×3 (00:36→11:41)
[2023-03-03] MEDS: IPRATROPIUM BR 0.02% INH SOLN 0.5 MG/2.5 ML VIAL INHALATION ×5 (02:12→23:01)
[2023-03-03] MEDS: LEVALBUTEROL NEB 1.25 MG/3 ML INHALATION ×5 (02:12→23:01)
[2023-03-03 05:40] LABS: Basophils Percent Auto 0.7 % (0.2-1.2); Eosinophils Absolute Auto 0.1 K/mm3 (0-0.3); Eosinophils Percent Auto 2.8 % (0-4.4); Hematocrit 22.5 % (37.0-47.0); Hemoglobin 7.2 g/dL (12.0-15.0); Immature Granulocyte Absolute 0.04 K/mm3 (0.00-0.031); Immature Granulocyte Percent A 1.4 % (0-0.5); Lymphocytes Absolute Auto 0.41 K/mm3 (0.9-3.2); Lymphocytes Percent Auto 14.4 % (18.3-44.2); Mean Corpuscular Hemoglobin 30.8 pg (26-34); Mean Corpuscular Volume 96.2 fl (80-100); Mean Platelet Volume 8.8 fl (7.4-10.4); Monocytes Absolute Auto 0.3 K/mm3 (0.1-0.6); Monocytes Percent Auto 10.6 % (2.6-8.5); Neutrophils Percent Auto 70.1 % (45.5-73.1); Platelet Count Result 112 k/mm3 (150-375); Red Blood Count 2.34 M/mm3 (4.2-5.4); Red Cell Distribution Width 23.1 % (11.5-14.5); White Blood Count 2.8 K/mm3 (4.5-10.0)
[2023-03-03] MEDS: CENTRAL LINE FLUSH 10 ML IV PUSH ×4 (05:40→21:09)
[2023-03-03 06:10] LABS: Alanine Aminotransferase 12 U/L (6-35); Albumin Level 3.6 g/dL (3.5-5.1); Alkaline Phosphatase 46 U/L (38-126); Anion Gap 6 mmol/L (8-16); Aspartate Amino Transferase 13 U/L (14-36); Bilirubin,Total 0.5 mg/dL (0.2-1.3); Blood Urea Nitrogen 15 mg/dL (7-17); Calcium 7.5 mg/dL (8.4-10.2); Carbon Dioxide 27 mmol/L (22-30); Chloride 103 mmol/L (98-107); Estimated CRCL calculation 51 ml/min; Estimated Glomerular Filt Rate 49; Glucose 102 mg/dL (65-110); Magnesium 2.1 mg/dL (1.6-2.3); Phosphorus 2.4 mg/dL (2.5-4.5); Potassium 3.9 mmol/L (3.4-5.0); Sodium 136 mmol/L (137-145)
[2023-03-03 06:20] LABS: Anisocytosis 3+ (NORMAL); Burr Cells 2+ (NORMAL); Hypochromasia 1+ (NORMAL); Ovalocytes 1+ (NORMAL)
[2023-03-03 06:21] LABS: Schistocytes None Seen (NORMAL)
[2023-03-03 08:20] LABS: Glucose Point of Care 94 mg/dl (65-105)
--- NOTE | 2023-03-03 11:39 | PM.IMPN ---
Progress Note: A&P Assessment and Plan (1) Septic shock: Code(s): A41.9 - Sepsis, unspecified organism; R65.21 - Severe sepsis with septic shock Status: Acute Assessment and Plan: Management per associate director data & analytics, continue Levophed and normal saline infusions Weaned off pressors and continue antibiotics, started on linezolid, cefepime, azithromycin 03/01 Both blood and urine cultures all positive for E coli, sensitivities pending Will repeat blood cultures 03/03 03/02: deescalate antibiotics, MRSA swab pending, discontinue azithromycin, deescalate cefepime to Rocephin and continue linezolid for now 03/03: MRSA culture still pending, follow-up repeat blood cultures, continue Rocephin, d/c linezolid, E coli is sensitive to Rocephin, deescalate to Augmentin when blood cultures are negative, home O2 eval prior to discharge (2) Stage IV breast cancer in female: Code(s): C50.919 - Malignant neoplasm of unspecified site of unspecified female breast Status: Acute Assessment and Plan: Hold chemotherapy for now, last dose 02/20/23 Hypocalcemia, replete and recheck (3) Diabetes mellitus with hyperglycemia: Qualifiers: Diabetes mellitus type: type 2 Code(s): E11.65 - Type 2 diabetes mellitus with hyperglycemia Status: Acute Assessment and Plan: Check A1c, Accu-Cheks, sliding scale insulin Hold metformin Blood glucose reviewed 03/03 (4) Hyperlipidemia: Code(s): E78.5 - Hyperlipidemia, unspecified Status: Acute Assessment and Plan: Hold statin (5) HTN (hypertension), benign: Code(s): I10 - Essential (primary) hypertension Status: Acute Assessment and Plan: Restart antihypertensives as able Previously on Coreg 12.5 mg q.12, furosemide 20 mg daily, held on admission Restarted Lasix 03/03 (6) Aortic valve defect: Code(s): I35.9 - Nonrheumatic aortic valve disorder, unspecified Status: Acute Assessment and Plan: Stable status post repair October 2022 (7) S/P aortic dissection repair: Code(s): Z98.890 - Other specified postprocedural states Status: Acute Assessment and Plan: Stable status post repair October 2022 Plan DVT prophylaxis with SCDs GI prophylaxis not indicated Code status DNR/DNI Subjective Date/time seen: 03/03/23 11:39 Interval history: 67-year-old female history of breast cancer, diabetes, aortic dissection repair presenting with shortness of breath, cough, nausea, vomiting and generalized weakness presented with hypoxia and sepsis from a UTI. No overnight events noted. No chest pain or shortness of breath. No nausea, vomiting or diarrhea. No fevers or chills. Review of Systems Review of Systems: 12 point review of systems was assessed and was negative except as noted in the HPI Exam Narrative: General: No acute distress, alert and oriented per baseline, still requiring supplemental oxygen at times HEENT: Atraumatic, normocephalic, mucous membranes moist CV: Regular rate and rhythm, S1, S2 Lungs: Coarse BS throughout, diminished air entry, no wheeze Abdomen: Soft, nontender, nondistended Extremities: Normal to inspection, nonpitting edema bilaterally Skin: No rashes noted, no lesions or wounds seen Psych: Euthymic, normal affect Objective Data Vital Signs Vital Signs: Vital Signs - 24 hr 03/02/23 13:20 03/02/23 13:30 03/02/23 12:00 Temperature Pulse Rate 97 95 99 Respiratory Rate 18 18 Blood Pressure Pulse Oximetry Oxygen Delivery Oxygen Flow Rate 03/02/23 14:00 03/02/23 12:00 03/02/23 12:00 Temperature 98.2 F Pulse Rate 96 96 Respiratory Rate 18 Blood Pressure 108/79 Pulse Oximetry 96 95 Oxygen Delivery Room Air Oxygen Flow Rate 03/02/23 14:00 03/02/23 16:00 03/02/23 16:00 Temperature 98.3 F Pulse Rate 95 94 94 Respiratory Rate 12 13 Blood Pressur
[2023-03-03] MEDS: ENOXAPARIN 30 MG/0.3 ML SYRINGE SUB-Q (11:41)
[2023-03-03 11:52] LABS: Glucose Point of Care 166 mg/dl (65-105)
[2023-03-03] MEDS: CALCIUM GLUCONATE 1,000 MG/10 ML VIAL 1000 MG IV PUSH (15:26)
[2023-03-03] MEDS: CALCIUM CARBONATE (OSCAL) 500 MG TABLET PO (16:24)
[2023-03-03] MEDS: traMADol HCL (*CRX) 50 MG TABLET PO (16:24)
[2023-03-03] MEDS: carvediloL 12.5 MG TABLET PO (17:38)
[2023-03-03 17:46] LABS: Glucose Point of Care 96 mg/dl (65-105)
[2023-03-03 20:31] LABS: Glucose Point of Care 124 mg/dl (65-105)
--- NOTE | 2023-03-03 21:00 | PC.NURSE ---
This patient, Ana Ochoa, was received from [ICU 12] on 03/03/23 at 2100. Patient/family oriented to unit policies and routines
--- NOTE | 2023-03-03 21:02 | PC.NURSE ---
This patient, Ana Ochoa, was transferred to [[id number] ] on 03/03/23 at 2100. Personal belongings sent with patient. Report given to [ JOHNY Beal]. Appropriate documentation sent with patient.
[2023-03-03] MEDS: cefTRIAXone 2 GM/NS 100 ML 2 GM/100 ML BAG IVPB (21:08)
[2023-03-04] VITALS (16 sets, daily range): BP systolic 143–170; BP diastolic 84–110; PULSE 103–127; RESP 18–22; TEMP 36.6–36.8; O2SAT 91–95
[2023-03-04] MEDS: LEVALBUTEROL NEB 1.25 MG/3 ML INHALATION ×4 (02:34→20:00)
[2023-03-04] MEDS: IPRATROPIUM BR 0.02% INH SOLN 0.5 MG/2.5 ML VIAL INHALATION ×4 (02:34→20:00)
[2023-03-04] MEDS: CENTRAL LINE FLUSH 10 ML IV PUSH ×4 (06:16→20:24)
[2023-03-04 06:31] LABS: Eosinophils Percent Auto 1.3 % (0-4.4); Hematocrit 25.8 % (37.0-47.0); Hemoglobin 8.4 g/dL (12.0-15.0); Lymphocytes Absolute Auto 0.42 K/mm3 (0.9-3.2); Mean Corpuscular HGB Conc 32.6 g/dl (32-36); Mean Corpuscular Hemoglobin 30.8 pg (26-34); Mean Corpuscular Volume 94.5 fl (80-100); Mean Platelet Volume 9.7 fl (7.4-10.4); Monocytes Absolute Auto 0.3 K/mm3 (0.1-0.6); Monocytes Percent Auto 10.3 % (2.6-8.5); Neutrophils Absolute Auto 2.2 K/mm3 (1.3-6.7); Neutrophils Percent Auto 73.4 % (45.5-73.1); Platelet Count Result 157 k/mm3 (150-375); Red Blood Count 2.73 M/mm3 (4.2-5.4); Red Cell Distribution Width 22.8 % (11.5-14.5)
[2023-03-04 06:59] LABS: Alanine Aminotransferase 21 U/L (6-35); Albumin Level 4.1 g/dL (3.5-5.1); Alkaline Phosphatase 67 U/L (38-126); Anion Gap 8 mmol/L (8-16); Aspartate Amino Transferase 21 U/L (14-36); Bilirubin,Total 0.6 mg/dL (0.2-1.3); Blood Urea Nitrogen 12 mg/dL (7-17); Calcium 8.3 mg/dL (8.4-10.2); Carbon Dioxide 27 mmol/L (22-30); Chloride 103 mmol/L (98-107); Estimated CRCL calculation 62 ml/min; Estimated Glomerular Filt Rate > 60; Glucose 134 mg/dL (65-110); Potassium 3.8 mmol/L (3.4-5.0); Sodium 138 mmol/L (137-145)
[2023-03-04 07:00] LABS: Anisocytosis 2+ (NORMAL); Platelet Estimate Adequate (Adequate)
[2023-03-04 07:01] LABS: Ovalocytes 1+ (NORMAL); Schistocytes None Seen (NORMAL)
--- NOTE | 2023-03-04 08:13 | PM.DS ---
DS: Discharge Diagnosis Discharge Diagnosis (1) Septic shock: Code(s): A41.9 - Sepsis, unspecified organism; R65.21 - Severe sepsis with septic shock Status: Acute Assessment and Plan: Weaned off pressors and continue antibiotics, started on linezolid, cefepime, azithromycin 03/01 Both blood and urine cultures all positive for E coli, sens to augmentin 03/02: Deescalate antibiotics, MRSA swab pending, discontinue azithromycin, deescalate cefepime to Rocephin and continue linezolid for now 03/03: MRSA culture still pending, follow-up repeat blood cultures, continue Rocephin, d/c linezolid, E coli is sensitive to Rocephin, deescalate to Augmentin when blood cultures are negative, home O2 eval prior to discharge 03/04: Repeat blood cultures pending (2) Stage IV breast cancer in female: Code(s): C50.919 - Malignant neoplasm of unspecified site of unspecified female breast Status: Acute Assessment and Plan: Hold chemotherapy for now, last dose 02/20/23 Hypocalcemia, replete and recheck (3) Diabetes mellitus with hyperglycemia: Qualifiers: Diabetes mellitus type: type 2 Code(s): E11.65 - Type 2 diabetes mellitus with hyperglycemia Status: Acute Assessment and Plan: Check A1c, Accu-Cheks, sliding scale insulin Hold metformin Blood glucose reviewed 03/04 (4) Hyperlipidemia: Code(s): E78.5 - Hyperlipidemia, unspecified Status: Acute Assessment and Plan: Hold statin (5) HTN (hypertension), benign: Code(s): I10 - Essential (primary) hypertension Status: Acute Assessment and Plan: Previously on Coreg 12.5 mg q.12, furosemide 20 mg daily, held on admission Restarted Lasix and coreg 03/03 (6) Aortic valve defect: Code(s): I35.9 - Nonrheumatic aortic valve disorder, unspecified Status: Acute Assessment and Plan: Stable status post repair October 2022 (7) S/P aortic dissection repair: Code(s): Z98.890 - Other specified postprocedural states Status: Acute Assessment and Plan: Stable status post repair October 2022 Plan DVT prophylaxis with SCDs GI prophylaxis not indicated Code status DNR/DNI DS: Summary Time Spent with Patient Time attestation: Total time spent providing and/or coordinating discharge services: Exam Narrative: General: No acute distress, alert and oriented per baseline, still requiring supplemental oxygen at times HEENT: Atraumatic, normocephalic, mucous membranes moist CV: Regular rate and rhythm, S1, S2 Lungs: Coarse BS throughout, diminished air entry, no wheeze Abdomen: Soft, nontender, nondistended Extremities: Normal to inspection, nonpitting edema bilaterally Skin: No rashes noted, no lesions or wounds seen Psych: Euthymic, normal affect DS: Data Data Completed and Pending Labs on day of discharge: Labs from last 24 hours 03/04/23 03/03/23 03/03/23 06:13 20:27 17:41 WBC 3.0 L RBC 2.73 L Hgb 8.4 L Hct 25.8 L MCV 94.5 MCH 30.8 MCHC 32.6 RDW 22.8 H Plt Count 157 MPV 9.7 Immature Gran % (Auto) 0.0 Neut % (Auto) 73.4 H Lymph % (Auto) 14.0 L [place] % (Auto) 10.3 H Eos % (Auto) 1.3 Baso % (Auto) 1.0 Lymph # (Auto) 0.42 L [place] # (Auto) 0.3 Eos # (Auto) 0.0 Baso # (Auto) 0.0 Abs Immat Gran (auto) 0.00 Absolute Neuts (auto) 2.2 Absolute Nucleated RBC 0.0 Nucleated RBC % 0.0 Platelet Estimate Adequate Anisocytosis 2+ Ovalocytes 1+ Schistocytes None seen Sodium 138 Potassium 3.8 Chloride 103 Carbon Dioxide 27 Anion Gap 8 BUN 12 Creatinine 0.90 Estim Creat Clear Calc 62 Estimated GFR > 60 Glucose 134 H POC Capillary Glucose 124 H 96 Calcium 8.3 L Total Bilirubin 0.6 AST 21 ALT 21 Alkaline Phosphatase 67 Total Protein 7.0 Albumin 4.1 03/03/23
[2023-03-04 08:28] LABS: Glucose Point of Care 126 mg/dl (65-105)
[2023-03-04] MEDS: ESCITALOPRAM OXALATE 10 MG TABLET 20 MG PO (09:37)
[2023-03-04] MEDS: FUROSEMIDE 20 MG TABLET PO (09:37)
[2023-03-04] MEDS: CALCIUM CARBONATE (OSCAL) 500 MG TABLET PO ×2 (09:37→17:11)
[2023-03-04] MEDS: CHOLECALCIFEROL 1,000 UNITS TABLET 2000 UNITS PO (09:37)
[2023-03-04] MEDS: ASCORBIC ACID 250 MG TABLET PO (09:37)
[2023-03-04] MEDS: ENOXAPARIN 30 MG/0.3 ML SYRINGE SUB-Q (09:37)
[2023-03-04] MEDS: POTASSIUM CHLORIDE 10 MEQ TABLET.ER PO (09:38)
[2023-03-04] MEDS: carvediloL 12.5 MG TABLET PO ×2 (10:36→20:25)
[2023-03-04] MEDS: ASPIRIN 81 MG CHEWABLE TABLET PO (10:36)
[2023-03-04 12:16] LABS: Glucose Point of Care 127 mg/dl (65-105)
--- NOTE | 2023-03-04 16:08 | PM.IMPN ---
Progress Note: A&P Assessment and Plan (1) Septic shock: Code(s): A41.9 - Sepsis, unspecified organism; R65.21 - Severe sepsis with septic shock Status: Acute Assessment and Plan: Weaned off pressors and continue antibiotics, started on linezolid, cefepime, azithromycin 03/01 Both blood and urine cultures all positive for E coli, sens to augmentin 03/02: Deescalate antibiotics, MRSA swab pending, discontinue azithromycin, deescalate cefepime to Rocephin and continue linezolid for now 03/03: MRSA culture still pending, follow-up repeat blood cultures, continue Rocephin, d/c linezolid, E coli is sensitive to Rocephin, deescalate to Augmentin when blood cultures are negative, home O2 eval prior to discharge 03/04: Repeat blood cultures pending (2) Stage IV breast cancer in female: Code(s): C50.919 - Malignant neoplasm of unspecified site of unspecified female breast Status: Acute Assessment and Plan: Hold chemotherapy for now, last dose 02/20/23 Hypocalcemia, replete and recheck Resolved, monitor (3) Diabetes mellitus with hyperglycemia: Qualifiers: Diabetes mellitus type: type 2 Code(s): E11.65 - Type 2 diabetes mellitus with hyperglycemia Status: Acute Assessment and Plan: Check A1c, Accu-Cheks, sliding scale insulin Hold metformin Blood glucose reviewed 03/04 (4) Hyperlipidemia: Code(s): E78.5 - Hyperlipidemia, unspecified Status: Acute Assessment and Plan: Hold statin (5) HTN (hypertension), benign: Code(s): I10 - Essential (primary) hypertension Status: Acute Assessment and Plan: Previously on Coreg 12.5 mg q.12, furosemide 20 mg daily, held on admission Restarted Lasix and coreg 03/03 (6) Aortic valve defect: Code(s): I35.9 - Nonrheumatic aortic valve disorder, unspecified Status: Acute Assessment and Plan: Stable status post repair October 2022 (7) S/P aortic dissection repair: Code(s): Z98.890 - Other specified postprocedural states Status: Acute Assessment and Plan: Stable status post repair October 2022 Plan DVT prophylaxis with SCDs GI prophylaxis not indicated Code status DNR/DNI Subjective Date/time seen: 03/04/23 16:08 Interval history: 67-year-old female history of breast cancer, diabetes, aortic dissection repair presenting with shortness of breath, cough, nausea, vomiting and generalized weakness presented with hypoxia and sepsis from a UTI. No overnight events noted. No chest pain or shortness of breath. No nausea, vomiting or diarrhea. No fevers or chills. Patient states she feels much better but still little weak. Review of Systems Review of Systems: 12 point review of systems was assessed and was negative except as noted in the HPI Exam Narrative: General: No acute distress, alert and oriented per baseline, still requiring supplemental oxygen at times HEENT: Atraumatic, normocephalic, mucous membranes moist CV: Regular rate and rhythm, S1, S2 Lungs: Coarse BS throughout, diminished air entry, scattered expiratory wheezes Abdomen: Soft, nontender, nondistended Extremities: Normal to inspection, trace nonpitting edema bilaterally Skin: No rashes noted, no lesions or wounds seen Psych: Euthymic, normal affect Objective Data Vital Signs Vital Signs: Vital Signs - 24 hr 03/03/23 17:38 03/03/23 18:01 03/03/23 20:00 Temperature 99.2 F Pulse Rate 110 H 113 H 103 H Respiratory Rate 18 20 Blood Pressure 136/80 Pulse Oximetry 92 Oxygen Delivery Oxygen Flow Rate 03/03/23 21:26 03/03/23 23:02 03/03/23 23:11 Temperature 97.7 F Pulse Rate 102 H 104 H Respiratory Rate 20 20 Blood Pressure 118/62 Pulse Oximetry 95 95 Oxygen Delivery Nasal Cannula Oxygen Flow Rate 3 03/03/23 20:00 03/03/23 23:13 03/03/23 23:00 Temperature Pulse Rate 105 H 104 H
[2023-03-04 17:09] LABS: Glucose Point of Care 146 mg/dl (65-105)
[2023-03-04] MEDS: predniSONE 20 MG TABLET 40 MG PO (17:11)
[2023-03-04] MEDS: cefTRIAXone 2 GM/NS 100 ML 2 GM/100 ML BAG IVPB (20:22)
[2023-03-04 20:24] LABS: Glucose Point of Care 145 mg/dl (65-105)
[2023-03-04] MEDS: ATORVASTATIN 40 MG TABLET PO (20:24)
[2023-03-04] MEDS: traMADol HCL (*CRX) 50 MG TABLET PO (20:24)
[2023-03-05] VITALS (15 sets, daily range): BP systolic 157–164; BP diastolic 91–105; PULSE 109–121; RESP 18–22; TEMP 36.6–36.7; O2SAT 86–96
[2023-03-05] MEDS: LEVALBUTEROL NEB 1.25 MG/3 ML INHALATION ×3 (02:02→14:33)
[2023-03-05] MEDS: IPRATROPIUM BR 0.02% INH SOLN 0.5 MG/2.5 ML VIAL INHALATION ×3 (02:02→14:33)
[2023-03-05 06:42] LABS: Basophils Percent Auto 0.4 % (0.2-1.2); Hematocrit 27.1 % (37.0-47.0); Hemoglobin 9.1 g/dL (12.0-15.0); Immature Granulocyte Absolute 0.01 K/mm3 (0.00-0.031); Immature Granulocyte Percent A 0.4 % (0-0.5); Lymphocytes Percent Auto 14.9 % (18.3-44.2); Mean Corpuscular HGB Conc 33.6 g/dl (32-36); Mean Corpuscular Hemoglobin 31.4 pg (26-34); Mean Corpuscular Volume 93.4 fl (80-100); Mean Platelet Volume 9.1 fl (7.4-10.4); Monocytes Absolute Auto 0.3 K/mm3 (0.1-0.6); Monocytes Percent Auto 9.7 % (2.6-8.5); Neutrophils Percent Auto 74.6 % (45.5-73.1); Platelet Count Result 158 k/mm3 (150-375); Red Cell Distribution Width 22.1 % (11.5-14.5); White Blood Count 2.7 K/mm3 (4.5-10.0)
[2023-03-05 06:53] LABS: Alanine Aminotransferase 21 U/L (6-35); Albumin Level 4.1 g/dL (3.5-5.1); Alkaline Phosphatase 73 U/L (38-126); Anion Gap 5 mmol/L (8-16); Aspartate Amino Transferase 23 U/L (14-36); Bilirubin,Total 0.7 mg/dL (0.2-1.3); Blood Urea Nitrogen 14 mg/dL (7-17); Calcium 8.6 mg/dL (8.4-10.2); Carbon Dioxide 34 mmol/L (22-30); Chloride 98 mmol/L (98-107); Estimated CRCL calculation 69 ml/min; Estimated Glomerular Filt Rate > 60; Glucose 181 mg/dL (65-110); Potassium 3.6 mmol/L (3.4-5.0); Sodium 137 mmol/L (137-145)
[2023-03-05 07:33] LABS: Anisocytosis 2+ (NORMAL); Ovalocytes 1+ (NORMAL); Platelet Estimate Adequate (Adequate); Schistocytes None Seen (NORMAL)
[2023-03-05 08:34] LABS: Glucose Point of Care 165 mg/dl (65-105)
--- NOTE | 2023-03-05 09:15 | PM.DS ---
DS: Admitting Diagnosis Discharge Date 03/05/23 Admitting Diagnosis sob DS: Discharge Diagnosis Discharge Diagnosis (1) Septic shock: Code(s): A41.9 - Sepsis, unspecified organism; R65.21 - Severe sepsis with septic shock Status: Acute Assessment and Plan: Weaned off pressors and continue antibiotics, started on linezolid, cefepime, azithromycin 03/01 Both blood and urine cultures all positive for E coli, sens to augmentin 03/02: Deescalate antibiotics, MRSA swab pending, discontinue azithromycin, deescalate cefepime to Rocephin and continue linezolid for now 03/03: MRSA culture still pending, follow-up repeat blood cultures, continue Rocephin, d/c linezolid, E coli is sensitive to Rocephin, deescalate to Augmentin when blood cultures are negative, home O2 eval prior to discharge 03/04: Repeat blood cultures pending, final results negative (2) Stage IV breast cancer in female: Code(s): C50.919 - Malignant neoplasm of unspecified site of unspecified female breast Status: Acute Assessment and Plan: Hold chemotherapy for now, last dose 02/20/23 Hypocalcemia, replete and recheck Resolved, monitor (3) Diabetes mellitus with hyperglycemia: Qualifiers: Diabetes mellitus type: type 2 Code(s): E11.65 - Type 2 diabetes mellitus with hyperglycemia Status: Acute Assessment and Plan: Check A1c, Accu-Cheks, sliding scale insulin Hold metformin Blood glucose reviewed 03/04 (4) Hyperlipidemia: Code(s): E78.5 - Hyperlipidemia, unspecified Status: Acute (5) HTN (hypertension), benign: Code(s): I10 - Essential (primary) hypertension Status: Acute Assessment and Plan: Previously on Coreg 12.5 mg q.12, furosemide 20 mg daily, held on admission Restarted Lasix and coreg 03/03 (6) Aortic valve defect: Code(s): I35.9 - Nonrheumatic aortic valve disorder, unspecified Status: Acute (7) S/P aortic dissection repair: Code(s): Z98.890 - Other specified postprocedural states Status: Acute DS: Summary Hospital Course Hospital Course: 67-year-old female history of breast cancer, diabetes, aortic dissection repair presenting with shortness of breath, cough, nausea, vomiting and generalized weakness presented with hypoxia and sepsis from a UTI. Patient was admitted to the ICU and started on pressors. Chemotherapy was held. She was started on broad-spectrum antibiotics with linezolid, cefepime azithromycin. Blood and urine cultures came back positive for E coli. She was deescalated to Rocephin once sensitivities came back. She is able to be weaned off pressors and moved to the floor. Home antihypertensives were able to be restarted. All symptoms resolved. She did have some hypoxia while here. She already had oxygen at home and has needed intermittently. Home O2 eval was performed. See above and [facility] rec for details. She was discharged on Augmentin to complete a 14 day course for her bacteremia. Repeat blood cultures were negative growth to date discharge but should be followed on an outpatient basis. Time Spent with Patient Time attestation: Total time spent providing and/or coordinating discharge services: DS: Data Data Completed and Pending Labs on day of discharge: Labs from last 24 hours 03/05/23 03/05/23 03/04/23 08:25 06:32 20:17 WBC 2.7 L RBC 2.90 L Hgb 9.1 L Hct 27.1 L MCV 93.4 MCH 31.4 MCHC 33.6 RDW 22.1 H Plt Count 158 MPV 9.1 Immature Gran % (Auto) 0.4 Neut % (Auto) 74.6 H Lymph % (Auto) 14.9 L [place] % (Auto) 9.7 H Eos % (Auto) 0.0 Baso % (Auto) 0.4 Lymph # (Auto) 0.40 L [place] # (Auto) 0.3 Eos # (Auto) 0.0 Baso # (Auto) 0.0 Abs Immat Gran (auto) 0.01 Absolute Neuts (auto) 2.0 Absolute Nucleated RBC 0.0 Nucleated RBC % 0.0 Platelet Estimate Adequate Anisocytosis 2+ Ovalocytes 1+ Schistocyte
[2023-03-05] MEDS: CALCIUM CARBONATE (OSCAL) 500 MG TABLET PO (09:43)
[2023-03-05] MEDS: ASCORBIC ACID 250 MG TABLET PO (09:43)
[2023-03-05] MEDS: ASPIRIN 81 MG CHEWABLE TABLET PO (09:43)
[2023-03-05] MEDS: predniSONE 20 MG TABLET 40 MG PO (09:43)
[2023-03-05] MEDS: FUROSEMIDE 20 MG TABLET PO (09:44)
[2023-03-05] MEDS: CHOLECALCIFEROL 1,000 UNITS TABLET 2000 UNITS PO (09:44)
[2023-03-05] MEDS: carvediloL 12.5 MG TABLET PO (09:44)
[2023-03-05] MEDS: POTASSIUM CHLORIDE 10 MEQ TABLET.ER PO (09:44)
[2023-03-05] MEDS: ENOXAPARIN 30 MG/0.3 ML SYRINGE SUB-Q (09:45)
[2023-03-05] MEDS: ESCITALOPRAM OXALATE 10 MG TABLET 20 MG PO (09:45)
--- NOTE | 2023-03-05 10:02 | HOMEO2EVAL ---
Evaluation was performed at [facility] Home Oxygen Evaluation RC: Home Oxygen (O2) Evaluation Start: 03/03/23 13:23 Freq: ONCE Status: Active Protocol: RPE Activity Type Activity Date Activity User E-sign Co-sign Detail Recorded Client Recorded Date Recorded By Document 03/05/23 09:45 KRM [email or web address] 03/05/23 10:02 KRM Document 03/05/23 09:47 [email or web address] [email or web address] 03/05/23 10:02 KRM Document 03/05/23 09:48 [email or web address] [email or web address] 03/05/23 10:02 KRM Document 03/05/23 09:50 [email or web address] [email or web address] 03/05/23 10:02 KRM Document 03/05/23 10:01 [email or web address] [email or web address] 03/05/23 10:02 KRM 03/05/23 03/05/23 03/05/23 09:45 09:47 09:48 Home O2 Evaluation [Oxygen] -Test Phase Resting Resting Resting -Oxygen Delivery Room Air Nasal Cannula Nasal Cannula -Oxygen Flow Rate (L/min) 1 2 [Pulse Oximetry] -Pulse Oximetry (90-100 %) 87 L 89 L 91 [Pulse Rate] -Pulse Rate (60-100 beats/min) 118 H 112 H 110 H [Evaluation] -Activity Tolerance [Exercise] -Ambulation Distance (feet) -Ambulation Distance (meters) [Comments] -Home Oxygen Evaluation Comments [Charges] -Treatment Charges 03/05/23 03/05/23 09:50 10:01 Home O2 Evaluation [Oxygen] -Test Phase Exercise Exercise -Oxygen Delivery Nasal Cannula Nasal Cannula -Oxygen Flow Rate (L/min) 2 3 [Pulse Oximetry] -Pulse Oximetry (90-100 %) 86 L 89 L [Pulse Rate] -Pulse Rate (60-100 beats/min) 120 H 118 H [Evaluation] -Activity Tolerance Fair [Exercise] -Ambulation Distance (feet) 50 -Ambulation Distance (meters) 15.23 [Comments] -Home Oxygen Evaluation Comments 2lpm at rest,3 lpm with activity. No changes to current home o2 settings. [Charges] -Treatment Charges O2 Evaluation - Inpatient
[2023-03-05 12:37] LABS: Glucose Point of Care 172 mg/dl (65-105)
[2023-03-05] MEDS: CENTRAL LINE FLUSH 10 ML IV PUSH (14:00)
[2023-03-05] MEDS: NEOMYCIN/POLYMYXIN/BACITRACIN OINTMENT PACKET 1 PACKET (17:06)
== END 2023-03-05 17:30 | disposition home or self-care (01) | DRG 871 ==
LOC: ANHED 03-01 01:50 → ANHICU 03-01 06:52 → ANH3MED 03-03 21:25
PROVIDERS: Internal Medicine; Admitting Provider Internal Medicine; Emergency Provider Emergency Medicine; Visit Provider Student in an Organized Health Care Education/Training Program
DX: A41.51 Sepsis due to Escherichia coli [E. coli] (principal); J96.01 Acute respiratory failure with hypoxia; R65.21 Severe sepsis with septic shock; N39.0 Urinary tract infection, site not specified; Z68.41 Body mass index [BMI] 40.0-44.9, adult; C50.919 Malignant neoplasm of unspecified site of unspecified female breast; I25.5 Ischemic cardiomyopathy; E11.65 Type 2 diabetes mellitus with hyperglycemia; E83.51 Hypocalcemia; E78.5 Hyperlipidemia, unspecified; I10 Essential (primary) hypertension; I35.9 Nonrheumatic aortic valve disorder, unspecified; Z98.890 Other specified postprocedural states; Z87.891 Personal history of nicotine dependence; E66.9 Obesity, unspecified; Z20.822 Contact with and (suspected) exposure to COVID-19
CPT/HCPCS: 36415; 36600; 71045; 71275; 80053; 81001; 82805; 82948; 83605; 83690; 83735; 83880; 84100; 84484; 85025; 85610; 85730; 87040; 87077; 87081; 87086; 87186; 87637; 93005; 94618; 94640; 96361; 96365; 96366; 96367; 96368; 96375; 97161; 97165; 99291; A9270; C1751; J0456; J0612; J0692; J0696; J1170; J1644; J1650; J1940; J2020; J2405; J3475; J7030; J7512; P9047; Q9967